=== PATIENT | male | born 1945 | race Caucasian/White ===

== ENCOUNTER 2021-07-30 05:52 | Observation (INO) ==
--- NOTE | 2021-06-09 11:23 | PAT Medication Instructions ---
Medication Instructions Date of Service June 09, 2021 Home Medications ergocalciferol (vitamin D2) [Vitamin D2] 1,250 mcg PO WK escitalopram oxalate [Lexapro] 10 mg PO QAM gabapentin [Neurontin] 600 mg PO QID levothyroxine [Synthroid] 50 mcg PO QAM lisinopril [Zestril] 10 mg PO QAM meloxicam [Mobic] 15 mg PO QAM oxycodone [Roxicodone] 5 mg PO Q6H PRN tamsulosin [Flomax] 0.4 mg PO QAM ibuprofen 800 mg PO Q8H PRN ASK your surgeon for instructions meloxicam [Mobic] 15 mg PO QAM ibuprofen 800 mg PO Q8H PRN DO NOT take the morning of surgery ergocalciferol (vitamin D2) [Vitamin D2] 1,250 mcg PO WK lisinopril [Zestril] 10 mg PO QAM Take morning of surgery With a small sip of water, OTHERWISE NOTHING TO EAT OR DRINK AFTER MIDNIGHT: escitalopram oxalate [Lexapro] 10 mg PO QAM gabapentin [Neurontin] 600 mg PO QID levothyroxine [Synthroid] 50 mcg PO QAM oxycodone [Roxicodone] 5 mg PO Q6H PRN (okay to take up to 4 hours prior to surgery if needed) tamsulosin [Flomax] 0.4 mg PO QAM Take evening before surgery gabapentin [Neurontin] 600 mg PO QID oxycodone [Roxicodone] 5 mg PO Q6H PRN (if needed) Other Notes If you have any questions please call us at [phone] or [phone] or [phone] or [phone]
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
[2021-07-30] MEDS ORDERED: dexAMETHasone 4 MG TAB PO SCH (06:00)
[2021-07-30] MEDS ORDERED: METOCLOPRAMIDE HCL 10 MG TABLET PO SCH (06:00)
[2021-07-30] MEDS ORDERED: TRANEXAMIC ACID 1,000 MG **IV Intra-op IV SCH (06:00)
[2021-07-30] MEDS ORDERED: ROPIVACAINE 0.5% HCL/PF 150 MG, BUPIVACAINE 0.75% MPF 20 ML, EPINEPHrine 30MG/30ML (OR ... INSTIL SCH (06:00)
[2021-07-30] MEDS ORDERED: FAMOTIDINE 20 MG TAB PO SCH (06:00)
[2021-07-30] MEDS ORDERED: GABAPENTIN 300 MG CAP PO SCH (06:00)
[2021-07-30] MEDS ORDERED: TRANEXAMIC ACID 1,000 MG **IV Pre-op IV SCH (06:00)
[2021-07-30] MEDS ORDERED: ACETAMINOPHEN 500 MG TAB PO SCH (06:00)
[2021-07-30] MEDS ORDERED: LR 500ML BOLUS, THEN 15ML/HR IV SCH (06:00)
[2021-07-30] MEDS ORDERED: CeleBREX 200 MG CAP PO SCH (06:00)
[2021-07-30] MEDS ORDERED: BUPIVACAINE 0.5 % 5 MG/1 ML PF 10ML VIAL ONE (06:29)
[2021-07-30] MEDS ORDERED: BUPIVACAINE 0.25% 30 ML VIAL ONE (06:29)
[2021-07-30] MEDS ORDERED: fentaNYL citrate 100 MCG/2 ML VIAL ONE (06:58)
[2021-07-30] MEDS ORDERED: PROPOFOL IV EMULSION 10 MG/ML 20 ML VIAL IV ONE (06:58)
[2021-07-30] MEDS ORDERED: MIDAZOLAM HCL 1 MG/ML 2ML VIAL ONE ×2 (06:58)
[2021-07-30] MEDS ORDERED: LIDOCAINE 2% 2 ML VIAL/AMP(20MG/ML) INFIL ONE (06:58)
--- NOTE | 2021-07-30 07:13 | History & Physical Bridge Note ---
Date of Service July 30, 2021 History & Physical Bridge Note I have examined the patient, reviewed the History & Physical and in the interval since the performance of the History & Physical I have noted the following changes of clinical significance: no changes noted
[2021-07-30] MEDS ORDERED: ATROPINE SULFATE 0.1 MG/ML 10ML SYR IV PRN (07:22)
[2021-07-30] MEDS ORDERED: ePHEDrine sulfate 50 MG/ML AMP IV PRN (07:22)
[2021-07-30] MEDS ORDERED: ONDANSETRON INJ 2 MG/ML 2 ML VIAL IV PRN ×2 (07:22→11:08)
[2021-07-30] MEDS ORDERED: fentaNYL citrate 100 MCG/2 ML VIAL IV PRN (07:22)
[2021-07-30] MEDS ORDERED: ORTHO JOINT ANESTHETIC ONE (07:46)
--- NOTE | 2021-07-30 09:29 | Operative Report ---
Post Operative Report Pre & Post Diagnosis Operation Date: 07/30/21 07:50 Pre-Op Diagnosis: Unilateral Primary Osteoarthritis Right Knee Post-Op Diagnosis: Unilateral Primary Osteoarthritis Right Knee I identified the patient and participated in the time-out.: Yes Procedure Operation Date: 07/30/21 07:50 Actual Procedures p Right Total Knee Arthroplasty(Right) utilizing [employer] persona right total knee arthroplasty size F standard femur tibia F polyeleven medial constrained patella 31 placido- Jerome Small DO Surgeon Jerome Small DO Mason Liner Stanton MANDUJANO Estimated Blood Loss 5 Findings Consistent with Post-Op Diagnosis Patient presents with severe end-stage DJD varus alignment subchondral sclerosis marginal osteophytes moderate to large effusion subchondral eburnated [id number] with complete loss of cartilage Specimens Bone and cartilage Drains Medium bore Hemovac Anesthesia Type MAC Spinal Regional Complications none Disposition Accompanied Patient To Recovery: No Disposition: Recovery Room Indications Patient presents with severe end-stage tricompartmental degenerative joint disease of the right knee no response to conservative management the patient still attempted conservative management clinic physical therapy anti- inflammatories relative rest activity modification corticosteroid injection vis cosupplementation above intraoperative findings were noted Description of Procedure After proper prepping and draping of the Right lower extremity anterior midline incision was made over the region of the extensor extensor mechanism after meticulous hemostasis was obtained and maintained in subcutaneous tissues a medial parapatellar incision was made The patella was subluxed lateralward the medial lateral gutter were cleaned from any hypertrophic synovitis and scar tissue of the distal femoral block was placed and the distal femoral osteotomy cut was made subsequently the chamfers anterior and posterior osteotomy cuts were made utilizing the 4-in-1 block the tibia was subsequently subluxed anteriorward medial and ateral meniscal remnants were excised in their entirety remnants of the anterior and posterior cruciate ligaments were excised in their entirety excellent exposure of the proximal tibia was obtained the tibial osteotomy guide was placed on the proximal tibial osteotomy cut was made once again the knee was irrigated with copious amounts of sterile saline solution the patella was subsequently everted lateralward thickened scar tissue around the patella was removed the patella was subsequently cut utilizing a freehand technique and was drilled prepared for final preparation and placement of patella socially flexion-extension gaps were checked and the equal and symmetric trials were placed to the appropriate femoral and tibial trials with poly-spacer being placed for equal flexion and extension gaps and full range of motion including extension to 0 and flexion to 140 the trial components after having been taken to recovery range of motion was subsequently removed meticulous hemostasis was obtained and maintained subsequently a knee block injection of joint cocktail including ropivacaine 0.5% 150 mg. Bupivacaine 0.5% epinephrine 1-200,030 mL's toradol 30 mg dexamethasone 4 mg ketamine 10 mg clonidine 100 micrograms normal saline solution 30 mg was infiltrated into the soft tissues of the posterior knee medial lateral gutters and periosteal synovium special attention was paid to protect neurovascular structures at all times subsequently trial components having been removed the knee was irrigated with sterile saline solution. debris was removed the proximal tibia was subsequently prepared and was made ready for the placement of the tibial component tibial component was also cemented and tamped into position the femoral component was subsequently placed and cemented in the position the patellar component was subsequently cemented in position because hemostasis once again obtained and maintained wound having been thoroughly irrigated with debridement and debridement lavage was performed as well as a medial parapatellar incision closed with #1 Vicryl in interrupted fashion subcutaneous was closed with #2 Vicryl skin was closed with skin clips. PA-C was necessary for prepping and drapping as well as wound closure of deep fascia Sub cutaneous tissue and skin and was necessary for the case. A sterile compressive dressing was placed patient was taken to recovery in stable condition of report dictated by Geovanny I attest to the content of the Intraoperative Record and any orders documented therein. Any exceptions are noted below. I attest to the content of the Intraoperative Record and any orders documented therein. Any exceptions are noted below.
[2021-07-30] MEDS ORDERED: NALOXONE HCL 0.4 MG/1 ML VIAL/CARP IV PRN (11:08)
[2021-07-30] MEDS ORDERED: oxyCODONE HCL IR 5 MG TAB (IMMEDIATE RELEASE) PO PRN (11:08)
[2021-07-30] MEDS ORDERED: HYDROmorphone INJ 0.5 MG/0.5 ML SYR IV PRN (11:08)
[2021-07-30] MEDS ORDERED: MAGNESIUM HYDROXIDE SUSP 30 ML UDC PO PRN (11:08)
[2021-07-30] MEDS ORDERED: bisacodyL 10 MG SUPP PR PRN (11:08)
[2021-07-30] MEDS: SODIUM CHLORIDE 0.9% 1000ML 1,000 ML IV SCH ×2 (11:31→21:47)
--- NOTE | 2021-07-30 11:41 | XRay Report ---
XR knee RT 1 or 2V routine CLINICAL HISTORY: Postoperative evaluation. COMPARISON: None. FINDINGS: Alignment of the total right knee arthroplasty is anatomic. There is no periprosthetic fra cture or unexpected radiopaque foreign body. There are drains and skin shannon. IMPRESSION: Expected findings following total right knee arthroplasty. ACT 112: Negative or not required by law. Electronically signed by: Kenneth Coffman M.D. 07/30/2021 11:39 AM
[2021-07-30] MEDS: GABAPENTIN 400 MG CAP PO SCH ×3 (13:25→21:16)
--- NOTE | 2021-07-30 14:39 | Anesthesiology Progress Note ---
Date of Service July 30, 2021 Anesthesia Post Procedure Vital Signs Vital Signs: Temp Pulse Pulse Resp BP BP Pulse Ox 07/30/21 14:14 36.4 C L 71 16 123/76 95 07/30/21 13:08 36.5 C 68 16 145/79 H 96 07/30/21 12:10 36.4 C L 66 16 124/79 95 07/30/21 11:37 36.4 C L 66 18 112/74 94 07/30/21 11:10 35.6 C L 60 18 115/76 93 07/30/21 10:40 36.4 C L 63 16 116/73 94 07/30/21 10:30 58 L 19 115/65 94 07/30/21 10:20 64 18 116/67 93 07/30/21 10:10 67 22 115/61 94 07/30/21 10:01 36.0 C L 73 20 104/56 L 99 07/30/21 07:26 75 18 150/89 H 96 07/30/21 06:44 36.6 C 75 18 156/92 H 98 Transfer of Care Handoff Completed per policy Notes Mental Status: alert / awake / arousable and participated in evaluation Patient Amnestic to Procedure: Yes Nausea / Vomiting: adequately controlled Pain: adequately controlled Airway Patency, RR, SpO2: stable & adequate BP & HR: stable & adequate Hydration State: stable & adequate Neuraxial Anesthesia: was administered and sensory block is resolving Anesthetic Complications: no major complications apparent and Pt Satisfied with anesthetic care
[2021-07-30] MEDS: ACETAMINOPHEN 500 MG TAB PO SCH ×2 (15:40→23:12)
[2021-07-30] MEDS: ceFAZolin 2000MG 2,000 MG/15 ML SYR IV SCH ×2 (15:40→23:12)
[2021-07-30] MEDS: FERROUS GLUCONATE 324 MG TAB PO SCH (17:24)
[2021-07-30] MEDS ORDERED: SENNA 8.6 MG TAB PO SCH (21:00)
[2021-07-30] MEDS: CeleBREX 200 MG CAP PO SCH (21:17)
[2021-07-30] MEDS: ASPIRIN 81 MG ECTAB PO SCH (21:17)
[2021-07-30] MEDS: DOCUSATE SODIUM 100 MG CAP PO SCH (21:18)
[2021-07-31 06:08] LABS: Hematocrit (blood only) 33.5 % (42-52); Mean Corpuscular Hemoglobin 31.3 pg (25-34); Mean Corpuscular Hgb Conc 32.8 g/dL (32-36); Mean Corpuscular Volume 95.2 fL (80-100); Mean Platelet Volume 9.6 fL (7.4-10.4); Platelet Count 246 K/uL (130-400); RDW Coefficient of Variation 12.7 % (11.5-14.5); RDW Standard Deviation 43.7 fL (36.4-46.3); Red Blood Count 3.52 M/uL (4.7-6.1); White Blood Count 15.25 K/uL (4.8-10.8)
[2021-07-31] MEDS ORDERED: LEVOTHYROXINE SODIUM 50 MCG TABLET PO SCH (06:30)
[2021-07-31 06:38] LABS: BUN Creatinine Ratio 20.2 (10-20); Calcium 8.4 mg/dl (8.5-10.1); Est GFR (African American) 46.1 ml/min; Est GFR (Non-African American) 39.8 ml/min; Potassium 4.9 mmol/L (3.5-5.1)
[2021-07-31] MEDS: ACETAMINOPHEN 500 MG TAB PO SCH ×2 (07:45→15:29)
[2021-07-31] MEDS: DOCUSATE SODIUM 100 MG CAP PO SCH (07:46)
[2021-07-31] MEDS: GABAPENTIN 400 MG CAP PO SCH ×2 (07:46→13:19)
[2021-07-31] MEDS: CeleBREX 200 MG CAP PO SCH (07:47)
[2021-07-31] MEDS: ASPIRIN 81 MG ECTAB PO SCH (07:47)
[2021-07-31] MEDS: FERROUS GLUCONATE 324 MG TAB PO SCH (07:48)
[2021-07-31] MEDS ORDERED: SODIUM CHLORIDE 0.9% 1000ML 500 ML IV ONE (08:33)
[2021-07-31] MEDS ORDERED: lisinopril 10 MG TAB PO SCH (09:00)
[2021-07-31] MEDS ORDERED: TAMSULOSIN HCL 0.4 MG CAP PO SCH (09:00)
[2021-07-31] MEDS ORDERED: MULTIVITAMIN TAB PO SCH (09:00)
[2021-07-31] MEDS ORDERED: ESCITALOPRAM OXALATE 10 MG TAB PO SCH (09:00)
--- NOTE | 2021-07-31 10:11 | Orthopedic Progress Note ---
Date of Service July 31, 2021 Assessment & Plan (1) Arthritis of right knee: Plan: Postop day 1 status post right total knee arthroplasty Continue PT/OT protocols. Weightbearing as tolerated. DVT prophylaxis-aspirin p.o. twice daily, SCDs, GEMMA rodrigues. Pain management as written. Leukocytosis-likely secondary from surgical stress and or preoperative steroids. Patient is currently asymptomatic. JOSE D-patient states he has not been taking much in the way of oral hydration. Preoperative creatinine was 1.2. Plan for a small bolus of IV fluids at this time. We will recheck his creatinine early afternoon. We discussed that if it was remaining high, that we would consider keeping him 1 more day and starting IV hydration. All NSAIDs have been discontinued. DC planning-patient is planning for home health services upon discharge. Admission and Anticipated Discharge Date Admission Date: July 30, 2021 Supervising Physician Co-Signing Physician Notes Patient seen and examined. Agree with NAZIA Marquez's note as above. Patient was quite unpleasant today with staying a few extra hours. I advised him that his kidney function got a little bit worse after surgery, with a preoperative creatinine of 1.2 and postoperatively up to 1.63. We are waiting on a repeat creatinine this afternoon to ensure that it would trend back down prior to discharge. He stated that he feels good and is going home today "no matter what". His repeat creatinine this afternoon was 1.68. Other electrolytes look unchanged. Without significant worsening, I suspect that this will come back to baseline few days, and it would be safe for him to discharge home today. We can have him follow-up with his primary care physician within a week for recheck. Subjective Postop day 1 Patient is sitting up in the chair at the bedside. No complaints this morning. Pain is controlled. Denies shortness of breath, chest pain, lightheadedness. He has just finished his physical therapy session of which it went well. Physical Exam Physical Exam: Dressings are clean, dry, and intact. Calves are soft nontender. Neurovascular is intact. Toes are mobile. He has good dorsiflexion and plantarflexion of the right foot. Hemovac drainage was 75 cc from the previous shift. Results & Data ([facility]) Vital Signs (Past 12 Hours) Vital Signs Temp Pulse Resp BP Pulse Ox 07/31/21 07:00 36.6 C 84 16 124/77 94 07/31/21 04:08 36.7 C 73 20 105/68 96 07/30/21 22:38 36.5 C 66 18 122/72 96 Laboratory Results Laboratory Results WBC 15.25 K/uL (4.8-10.8) H 07/31/21 05:44 RBC 3.52 M/uL (4.7-6.1) L 07/31/21 05:44 Hgb 11.0 g/dL (14.0-18.0) L 07/31/21 05:44 Hct 33.5 % (42-52) L 07/31/21 05:44 MCV 95.2 fL (80-100) 07/31/21 05:44 MCH 31.3 pg (25-34) 07/31/21 05:44 MCHC 32.8 g/dL (32-36) 07/31/21 05:44 RDW Std Deviation 43.7 fL (36.4-46.3) 07/31/21 05:44 RDW Coeff of Sree 12.7 % (11.5-14.5) 07/31/21 05:44 Plt Count 246 K/uL (130-400) 07/31/21 05:44 MPV 9.6 fL (7.4-10.4) 07/31/21 05:44 Sodium 137 mmol/L (136-145) 07/31/21 05:44 Potassium 4.9 mmol/L (3.5-5.1) 07/31/21 05:44 Chloride 109 mmol/L (98-107) H 07/31/21 05:44 Carbon Dioxide 22 mmol/L (21-32) 07/31/21 05:44 Anion Gap 6.0 (3-11) 07/31/21 05:44 BUN 33 mg/dl (7-18) H 07/31/21 05:44 Creatinine 1.63 mg/dl (0.6-1.4) H 07/31/21 05:44 Est Cr Clr Drug Dosing 47.0 ml/min 07/31/21 05:44 Est GFR ( Amer) 46.1 ml/min 07/31/21 05:44 Est GFR (Non-Af Amer) 39.8 ml/min 07/31/21 05:44 BUN/Creatinine Ratio 20.2 (10-20) H 07/31/21 05:44 Glucose 128 mg/dl (70-99) H 07/31/21 05:44 Calcium 8.4 mg/dl (8.5-10.1) L 07/31/21 05:44 COVID-19 Eval Order Covid19 at [facility] 07/30/21 06:20 SARS-CoV-2 (PCR) NEGATIVE (Negative) 07/30/21 06:20 Impressions Knee X-Ray 07/30/21 10:06 XR knee RT 1 or 2V routine CLINICAL HISTORY: Postoperative evaluation. COMPARISON: None. FINDINGS: Alignment of the total right knee arthroplasty is anatomic. There is no periprosthetic fracture or unexpected radiopaque foreign body. There are drains and skin shannon. IMPRESSION: Expected findings following total right knee arthroplasty. ACT 112: Negative or not required by law. Electronically signed by: Kenneth Coffman M.D. 07/30/2021 11:39 AM
[2021-07-31 13:36] LABS: BUN Creatinine Ratio 19.9 (10-20); Calcium 8.5 mg/dl (8.5-10.1); Creatinine Clr Calc Pharmacy 45.6 ml/min; Est GFR (African American) 44.4 ml/min; Est GFR (Non-African American) 38.3 ml/min
[2021-07-31 14:30] VITALS: PULSE 77; TEMP 98.2; O2SAT 96
[2021-07-31 15:16] VITALS: BP 123/77
--- NOTE | 2021-08-05 11:26 | Discharge Summary ---
Date of Service August 05, 2021 Admission HPI Per Admitting Provider nicol is a 76 year old male who complains of right knee pain, presents for pre-op evaluation prior to a right total knee replacement by Dr Small at [facility]. He complains of pain, crepitus, decreased range of motion, instability and stiffness in his right knee. He states that the symptoms have been chronic and non-traumatic. Currently the patient states that the symptoms are moderate- severe and rated 6/10. The pain is described as aching, sharp and throbbing. His symptoms are aggravated by ascending stairs, daily activities, first steps while awake walking. He has been treated with previous cortisone, visco injections and fluid flow injection in the past without much relief. he has been cleared from his plastic surgeon in regards to his neck surgery from his nava to proceed with his knee surgery. Admission Exam Per Admitting Provider Physical Exam: HT: 5ft 10in WT: 122.6kg Constitutional: WD/WN, vitals as above no acute distress Respiratory: normal respiratory effort, lungs clear to auscultation no respiratory distress, no labored breathing and does not use accessory muscles Cardiovascular: RRR, no murmur, no edema Gastrointestinal (Abdomen): normal bowel sounds, soft, nontender, no hepatosplenomegaly Musculoskeletal: Knee: + knee abnormal to inspection (RIGHT KNEE), + effusion (+1 effusion), + limited ROM of knee (ROM 0/3/110), + knee ROM with crepitation, + joint line tenderness (medial joint line) and + David's sign positive; no deformity, no skin erythema, no ecchymosis, no valgus laxity, no va oziel laxity, anterior drawer test negative, Dimitry's sign negative and pivot shift test negative Principal Diagnosis Osteoarthritis right knee Discharge Data Allergies Allergy/AdvReac Type Severity Reaction Status Date / Time No Known Allergies Allergy Verified 07/30/21 06:28 Procedures Performed Operation Date: 07/30/21 07:50 Actual Procedures p Right Total Knee Arthroplasty(Right) - Jerome Small DO Ordered Studies 07/30/21 05:00 US - OR guided needle placemen Routine Hospital Course (1) Arthritis of right knee: [id number] July 31, 2021 14:27 Discussed lab results (creatinine) with Hospitalist service. Pt is very adamant that he is going home today and not staying another day. Plan to hold his Lisinopril for 3 days. BMP draw early next week by Home Health services with results going to PCP. Continue to push fluids and monitor urine output. Plan for dc to home today. Addendum Signed By:<Electronically signed by Stanton Marquez PA-C>07/31/21 143ddendum Cosigned By:<Electronically signed by Kush Pugh M.D.>07/31/216Created: 07/31/2101/19/1431 Date of Service July 31, 2021 Assessment & Plan (1) Arthritis of right knee: Plan: Postop day 1 status post right total knee arthroplasty Continue PT/OT protocols. Weightbearing as tolerated. DVT prophylaxis-aspirin p.o. twice daily, SCDs, GEMMA hose. Pain management as written. Leukocytosis-likely secondary from surgical stress and or preoperative steroids. Patient is currently asymptomatic. JOSE D-patient states he has not been taking much in the way of oral hydration. Preoperative creatinine was 1.2. Plan for a small bolus of IV fluids at this time. We will recheck his creatinine early afternoon. We discussed that if it was remaining high, that we would consider keeping him 1 more day and starting IV hydration. All NSAIDs have been discontinued. DC planning-patient is planning for home health services upon discharge. Admission and Anticipated Discharge Date Admission Date: July 30, 2021 Supervising Physician Co-Signing Physician Notes Patient seen and examined. Agree with NAZIA Marquez's note as above. Patient was quite unpleasant today with staying a few extra hours. I advised him that his kidney function got a little bit worse after surgery, with a preoperative creatinine of 1.2 and postoperatively up to 1.63. We are waiting on a repeat creatinine this afternoon to ensure that it would trend back down prior to discharge. He stated that he feels good and is going home today "no matter what". His repeat creatinine this afternoon was 1.68. Other electrolytes look unchanged. Without significant worsening, I suspect that this will come back to baseline few days, and it would be safe for him to discharge home today. We can have him follow-up with his primary care physician within a week for recheck. Subjective Postop day 1 Patient is sitting up in the chair at the bedside. No complaints this morning. Pain is controlled. Denies shortness of breath, chest pain, lightheadedness. He has just finished his physical therapy session of which it went well. Physical Exam Physical Exam: Dressings are clean, dry, and intact. Calves are soft nontender. Neurovascular is intact. Toes are mobile. He has good dorsiflexion and plantarflexion of the right foot. Hemovac drainage was 75 cc from the previous shift. Results & Data ([facility]) Vital Signs (Past 12 Hours) Vital Signs Temp Pulse Resp BP Pulse Ox 07/31/21 07:00 36.6 C 84 16 124/77 94 07/31/21 04:08 36.7 C 73 20 105/68 96 07/30/21 22:38 36.5 C 66 18 122/72 96 Laboratory Results Laboratory Results WBC 15.25 K/uL (4.8-10.8) H 07/31/21 05:44 RBC 3.52 M/uL (4.7-6.1) L 07/31/21 05:44 Hgb 11.0 g/dL (14.0-18.0) L 07/31/21 05:44 Hct 33.5 % (42-52) L 07/31/21 05:44 MCV 95.2 fL (80-100) 07/31/21 05:44 MCH 31.3 pg (25-34) 07/31/21 05:44 MCHC 32.8 g/dL (32-36) 07/31/21 05:44 RDW Std Deviation 43.7 fL (36.4-46.3) 07/31/21 05:44 RDW Coeff of Sree 12.7 % (11.5-14.5) 07/31/21 05:44 Plt Count 246 K/uL (130-400) 07/31/21 05:44 MPV 9.6 fL (7.4-10.4) 07/31/21 05:44 Sodium 137 mmol/L (136-145) 07/31/21 05:44 Potassium 4.9 mmol/L (3.5-5.1) 07/31/21 05:44 Chloride 109 mmol/L (98-107) H 07/31/21 05:44 Carbon Dioxide 22 mmol/L (21-32) 07/31/21 05:44 Anion Gap 6.0 (3-11) 07/31/21 05:44 BUN 33 mg/dl (7-18) H 07/31/21 05:44 Creatinine 1.63 mg/dl (0.6-1.4) H 07/31/21 05:44 Est Cr Clr Drug Dosing 47.0 ml/min 07/31/21 05:44 Est GFR ( Amer) 46.1 ml/min 07/31/21 05:44 Est GFR (Non-Af Amer) 39.8 ml/min 07/31/21 05:44 BUN/Creatinine Ratio 20.2 (10-20) H 07/31/21 05:44 Glucose 128 mg/dl (70-99) H 07/31/21 05:44 Calcium 8.4 mg/dl (8.5-10.1) L 07/31/21 05:44 COVID-19 Eval Order Covid19 at [facility] 07/30/21 06:20 SARS-CoV-2 (PCR) NEGATIVE (Negative) 07/30/21 06:20 Impressions Knee X-Ray 07/30/21 10:06 XR knee RT 1 or 2V routine CLINICAL HISTORY: Postoperative evaluation. COMPARISON: None. FINDINGS: Alignment of the total right knee arthroplasty is anatomic. There is no periprosthetic fracture or unexpected radiopaque foreign body. There are drains and skin shannon. IMPRESSION: Expected findings following total right knee arthroplasty. ACT 112: Negative or not required by law. Electronically signed by: Kenneth Coffman M.D. 07/30/2021 11:39 AM Total Time Total Time Spent Total Time Spent (In Minutes): 5 Discharge Plan Discharge Items Patient Disposition: Home - Home Health Services Reason For Visit: Unilateral Primary Osteoarthritis Right Knee Discharge Diagnosis: Osteoarthritis Right Knee Activity: Per Instructions section Weightbearing: Right weightbearing Weightbearing Comment: as tolerated with walker Non-emergency contact: Surgeon Call non-emergency contact if: your pain is not controlled, your temperature is above 101.5, your wound has increased redness and your wound has increased drainage Follow-up/Referrals: Eros Fiore D.O. [Primary Care Provider] - Diet: Regular Ambulatory Orders: Basic Metabolic Panel (Routine) Timeframe: 20210804 Location: Determined by Patient Ordered By: Stanton Julien Attending Provider Instructions: CONTINUE TO DRINK FLUIDS REGULARLY! DO NOT TAKE YOUR LISINOPRIL FOR 3 DAYS. YOU MAY RESTART YOUR LISINOPRIL ON Wednesday08/04/21 HOME HEALTH WILL DRAW YOUR BLOOD ON WEDNESDAY (IF ABLE DUE TO HOLIDAY) AND SEND THE RESULTS TO YOUR PRIMARY CARE PROVIDER. DO NOT TAKE ANY OTHER NSAIDS (ADVIL, MOBIC ETC, ALEVE) AT THIS TIME OTHER THAN ASPIRIN IF YOU HAVE INCREASING DIFFICULTY URINATING OR NOTICE YOUR ARE HAVING LESS URINE PRODUCTION, PLEASE CALL YOUR PRIMARY CARE PROVIDER. ACTIVITY RECOMMENDATIONS: SELF CARE INSTRUCTIONS AFTER TOTAL KNEE REPLACEMENT A. You may need to continue a physical therapy program after discharge from the hospital. There are several options available to you. Your doctor will assist you in selecting the best one for you. 1. An out-patient facility 2 to 3 times a week for therapy or home therapy. 2. Continue working on all exercises taught to you in the hospital. Your goals should be to increase bending of your knee to 90 degrees and beyond and to fully straighten your knee. B. You may progress at your own pace from walking with a walker or crutches to a cane; then to no assistive devices. C. Make walking a part of your daily routine. Be up as much as comfortable with rest periods throughout the day. Rest with leg elevation is very important. Use the ice wrap frequently for the first 3-4 weeks. D. There are no restrictions on activities. You may ride in a car, shop, participate in creative/art director and all social activities. E. Wear the long elastic stockings (GEMMA hose) 20 hours a day for 2 weeks after surgery. They can be removed several times a day for laundering and for a bath. F. You may shower, no tub baths until cleared by your doctor. SPECIAL CARE INSTRUCTIONS: VERY IMPORTANT TO READ AND REVIEW A. There are a few signs you need to watch for after you are home. Call [facility] if you notice any of the followin. Increased severe knee pain. Some pain is expected especially when you exercise. 2. Increased swelling in your leg or knee; pain or swelling of the calf muscle in either lower leg. 3. Any fluid drainage from the incision. 4. Shortness of breath or chest pain. B. Please call [facility] at if you have any concerns or questions about your operation or recovery. The doctor or his nurse will return your call promptly. C. You must take antibiotics before dental work, bladder, bowel or other surgery. Your doctor will provide you with a permanent care to carry describing this precaution. IMPORTANT: * REMEMBER TO TAKE ASPIRIN, 81 MG, TWICE DAILY FOR 4 WEEKS UNLESS OTHERWISE DIRECTED. THIS IS YOUR BLOOD THINNER. * CALL IF INCREASED PAIN, REDNESS, DRAINAGE OR FEVER GREATER THAT 101. * WEAR GEMMA HOSE 20 HOURS PER DAY FOR 2 WEEKS. * [place] Wound Dressing - This is a large suction dressing covering your incision. This will help pull any excess drainage from the wound and allow your incision to heal properly. You may shower with this if you can keep the unit outside of the shower. If any bleeding or leakage is noted please call your doctor's office. This will remain on your incision for 7 days and then should be removed. This can be done yourself or by the home nursing staff if applicable. The entire unit is disposable once removed. Once removed, keep incision clean and dry. If redness or drainage is noted, please call your surgeon. . FOLLOW UP VISIT: If appointment is not already scheduled: Please call [facility] to make a follow-up appointment for 2 weeks after your surgery at . FOLLOW UP WITH YOUR PRIMARY CARE PROVIDER IN 1 WEEK TO RECHECK YOUR BLOOD CHEMISTRY Pending Studies at Discharge: No Stand-Alone Forms: My [facility], Opioid Pain Management, Smoking Jose sation Medications and DC Order Prescriptions: New acetaminophen [Tylenol Extra Strength] 500 mg Tablet 1,000 mg PO Q8H 14 Days Qty: 84 RF: 0 aspirin 81 mg Tablet,Delayed Release (Dr/Ec) 81 mg PO BID 30 Days Qty: 60 RF: 0 cefadroxil 500 mg capsule 500 mg PO BID Qty: 28 RF: 1 polyethylene glycol 3350 [Miralax] 17 gram powder in packet 17 g PO DAILY PRN (Reason: constipation) Qty: 5 RF: 0 oxycodone 5 mg Tablet 5 - 10 mg PO Q4H PRN (Reason: pain) Qty: 36 RF: 0 Continued tamsulosin [Flomax] 0.4 mg capsule 0.4 mg PO QAM RF: 0 levothyroxine [Synthroid] 50 mcg tablet 50 mcg PO QAM RF: 0 gabapentin [Neurontin] 100 mg capsule 800 mg PO QID RF: 0 ergocalciferol (vitamin D2) [Vitamin D2] 1,250 mcg (50,000 unit) capsule 1,250 mcg PO WK RF: 0 escitalopram oxalate [Lexapro] 10 mg tablet 10 mg PO QAM RF: 0 Discontinued meloxicam [Mobic] 15 mg tablet 15 mg PO QAM RF: 0 lisinopril [Zestril] 10 mg tablet 10 mg PO QAM RF: 0 oxycodone [Roxicodone] 5 mg tablet 5 mg PO Q6H PRN (Reason: Pain) RF: 0 ibuprofen 800 mg Tablet 800 mg PO Q8H PRN (Reason: Pain) RF: 0 tramadol 50 mg Tablet 50 mg PO Q6H PRN (Reason: Pain) RF: 0 Discharge Orders: Discharge Order (Routine); Ordered 07/31/21 Ordered By: Stanton Adhikari/Other Patient Handouts: DVT Post Op Prevention Admission Data Admit Date/Time: 07/30/21 10:06 Attending Provider: Jerome Small Admit Provider: Jerome Small Primary Care Provider: Eros Fiore Other Providers: [facility],Home Health Other Interventions: Discharge Summary Assessment (RN) Last Done: 07/31/21 15:14
== END 2021-07-31 16:39 | disposition home health service (06) ==
LOC: 3E 05:52 → ASU 05:52
DX: I10 Essential (primary) hypertension; G62.9 Polyneuropathy, unspecified; Z79.899 Other long term (current) drug therapy; M17.11 Unilateral primary osteoarthritis, right knee; N40.0 Benign prostatic hyperplasia without lower urinary tract symptoms; Z79.891 Long term (current) use of opiate analgesic